=== PATIENT | male | born 1955 | race Caucasian/White ===

== ENCOUNTER → 2016-10-07 | Outpatient (CLI) | payer MEDICARE ==
[~2016-10-07] MED LIST: ASCO500C PO; AZIT250T3 PO; IPRASOL INH; NEBULIZER1 MI1; PRED20 PO; SYMB80AE INH; VENTAER INH
--- NOTE | 2016-12-10 14:00 | RSPPFT ---
DATE OF PROCEDURE: 10/07/16 COMMENTS: VOLUMES DYNAMIC: FVC mildly reduced; FEV1 severely reduced. FLOWS: FEV1% and FEF 25-75 severely reduced. IMPRESSION: Severe obstructive ventilatory defect with minimal improvement post-bronchodilator.
== END ==
LOC: HRSP 10:44
PROVIDERS: ATTEND Family Medicine
DX: J43.9 Emphysema, unspecified (principal); F17.200 Nicotine dependence, unspecified, uncomplicated
CPT/HCPCS: 94060

== ENCOUNTER → 2016-10-24 | Outpatient (CLI) | payer MEDICARE ==
[2016-10-24 10:04] LABS: HEMATOCRIT 44.2 % (39.0-51.0); MEAN CELL VOLUME 94.5 FL (80.0-100.0); MEAN CORPUSCULAR HEMOGLOBIN 32.7 PG (27.0-34.0); MEAN CORPUSCULAR HGB CONC 34.6 % (32.0-36.0); PLATELET COUNT 304 TH/MM3 (150-450); RED BLOOD COUNT 4.67 MIL/MM3 (4.50-5.90); RED CELL DISTRIBUTION WIDTH 14.2 % (11.6-17.2); REVIEW FLAG FINAL; WHITE BLOOD COUNT 8.9 TH/MM3 (4.0-11.0)
[2016-10-24 10:21] LABS: BICARBONATE 27.7 MEQ/L (21.0-32.0); POTASSIUM 4.3 MEQ/L (3.5-5.1)
== END ==
LOC: PLAB 07:17
PROVIDERS: ATTEND Family Medicine
DX: J43.9 Emphysema, unspecified (principal); F17.200 Nicotine dependence, unspecified, uncomplicated
CPT/HCPCS: 36415; 80048; 85027

== ENCOUNTER → 2016-11-11 | Outpatient (CLI) | payer MEDICARE ==
[2016-11-11 15:43] LABS: BLOOD, URINE NEG (NEG); GLUCOSE,URINE NEG (NEG); KETONE, URINE NEG (NEG); NITRITE,URINE NEG (NEG); PH, URINE 5.5 (5.0-8.5); URINE COLOR LIGHT-YELLOW (YELLW/STRAW)
[2016-11-11 15:51] LABS: CREATININE RANDOM URINE 27 MG/DL (27-300)
[2016-11-11 16:00] LABS: MICRO ALBUMIN RANDOM URINE RAW LESS THAN 5.0 MG/L (0.0-30.0); MICROALBUMIN/CREAT RATIO RAND 19 MG/G CRE (0-30)
== END ==
LOC: PLAB 13:29
PROVIDERS: ATTEND Family Medicine
DX: Z00.00 Encounter for general adult medical examination without abnormal findings (principal); R94.4 Abnormal results of kidney function studies; J43.9 Emphysema, unspecified; R31.29 Other microscopic hematuria; R80.9 Proteinuria, unspecified; Z12.11 Encounter for screening for malignant neoplasm of colon; Z68.23 Body mass index [BMI] 23.0-23.9, adult
CPT/HCPCS: 81001; 82043

== ENCOUNTER → 2016-11-28 | Outpatient (CLI) | payer MEDICARE ==
[2016-11-28 13:06] LABS: MEAN CELL VOLUME 94.1 FL (80.0-100.0); MEAN CORPUSCULAR HEMOGLOBIN 31.4 PG (27.0-34.0); MEAN CORPUSCULAR HGB CONC 33.4 % (32.0-36.0); PLATELET COUNT 231 TH/MM3 (150-450); RED BLOOD COUNT 4.58 MIL/MM3 (4.50-5.90); RED CELL DISTRIBUTION WIDTH 14.5 % (11.6-17.2); REVIEW FLAG FINAL; WHITE BLOOD COUNT 8.4 TH/MM3 (4.0-11.0)
[2016-11-28 13:19] LABS: BLOOD, URINE NEG (NEG); GLUCOSE,URINE NEG (NEG); KETONE, URINE NEG (NEG); MUCUS URINE FEW /lpf (OCC); NITRITE,URINE NEG (NEG); URINE COLOR YELLOW (YELLW/STRAW)
[2016-11-28 13:33] LABS: MICRO ALBUMIN RANDOM URINE RAW 5.9 MG/L (0.0-30.0)
[2016-11-28 13:38] LABS: BICARBONATE 27.8 MEQ/L (21.0-32.0); POTASSIUM 4.1 MEQ/L (3.5-5.1)
== END ==
LOC: PLAB 08:40
PROVIDERS: ATTEND Family Medicine
DX: J43.9 Emphysema, unspecified (principal); R94.4 Abnormal results of kidney function studies; Z12.11 Encounter for screening for malignant neoplasm of colon; Z68.23 Body mass index [BMI] 23.0-23.9, adult
CPT/HCPCS: 36415; 80048; 81001; 82043; 85027

== ENCOUNTER 2016-12-23 03:09 | Emergency (ER) | payer MEDICARE, MEDICAID ==
[~2016-12-23] VITALS: Ht 182.9 cm; Wt 72.7 kg
[2016-12-23] MEDS ORDERED: DOPamine INJ PREMIX 500 ML ONE (03:17)
[2016-12-23] MEDS ORDERED: NOREPINEPHRINE 4 MG/4 ML AMP ONE (03:44)
[2016-12-23] MEDS ORDERED: NOREPINEPHRINE 4 MG/D5W 250 ML IV SCH (04:00)
--- NOTE | 2016-12-23 04:41 | PD ---
HPI Chief Complaint: Code Blue Time Seen by Provider: 04:35 Travel History International Travel<30 days: No Contact w/Intl Traveler<30days: No Traveled to known affect area: No History of Present Illness HPI 61-year-old male presents to the emergency department by EMS transport in cardiac arrest. According to slabber [facility] report they were called to his home for complaint of shortness of breath. According to slabber light report the patient wasn't unable to give his own history due to marked shortness of breath and history was obtained by the patient's . According to slabber [facility] report as soon as they began to transport him from the house to the EMS unit the patient went into cardiac arrest and he was quickly placed in the unit intubated with a 7.5 endotracheal tube IV access was obtained via a left external jugular vein and patient was found to be in asystole along with compressions patient was given epinephrine. Blood glucose was 121. Patient reportedly received 2 rounds of epinephrine en route to the hospital as well as sodium bicarbonate. Upon their arrival to the emergency department reportedly patient was starting to show some evidence of effort to breathe spontaneously. Patient did not have a palpable pulse during transport or upon arrival to the emergency department. According to slabber light report patient had awakened with marked shortness of breath complaining of inability degrees and then becoming more symptomatic. Patient has history of COPD and tobacco use. No other history available. PFSH Past Medical History Narrative Medical copd; tobacco; nursing notes reviewed Social History Tobacco Use: Yes Allergies-Medications (Allergen,Severity, Reaction): Coded Allergies: No Known Allergies (Unverified , 12/23/16) Reported Meds & Prescriptions Reported Meds & Active Scripts Active Nebulizer 1 Mis Mis 1 Ea .ROUTE DIRECTED Duoneb (Ipratropium-Albuterol Neb) 0.5-2.5 Mg/3 Ml Neb 1 Nebule INH Q4HR NEB Prednisone 20 Mg Tab 20 Mg PO BID Azithromycin 250 Mg Tab 250 Mg PO DIRECTED Take 2 tabs (500 mg) on day 1 then 1 tab daily x 4 days. Symbicort Inh (Budesonide/Formoterol Fumarate) 80-4.5 Mcg/Act Aero 2 Puff INH Q12HR Reported Ventolin Hfa 18 GM Inh (Albuterol Sulfate) 90 Mcg/Act Aer 2 Puff INH Q6H PRN Vitamin C (Ascorbic Acid) 500 Mg Cap 500 Mg PO Review of Systems ROS Limitations: Clinical Condition, Intubated, Unresponsive Physical Exam Narrative GENERAL: Well-developed thin male intubated unresponsive Ambu assisted ventilations with a few agonal respirations no spontaneous heart sounds to auscultation no palpable femoral or carotid pulse. SKIN: Warm and dry and dusky. HEAD: Normocephalic. EYES: No scleral icterus. No injection or drainage. Pupils dilated. NECK: Supple, trachea midline. No JVD or lymphadenopathy. Left external jugular vein with venous access. CARDIOVASCULAR: No heart sounds to auscultation. No femoral radial or carotid pulses to palpation bilaterally. RESPIRATORY: Breath sounds equal bilaterally with ambu assisted ventilation. GASTROINTESTINAL: Abdomen soft, nondistended. MUSCULOSKELETAL: No edema. Data Data Orders Dopamine Inj Premix (Dopamine Inj Premix (12/23/16 03:17) Norepinephrine Inj (Levophed Inj) (12/23/16 03:44) Norepinephrine-Dextrose Drip (Levophed-D (12/23/16 04:00) Arterial Blood Gas (Abg) (12/23/16 03:14) Labs Laboratory Tests Test 12/23/16 03:14 Blood Gas Puncture Site LFEM Blood Gas Patient Temperature 98.6 Blood Gas HCO3 12 mmol/L Blood Gas Base Excess -18.8 mmol/L Blood Gas Oxygen Saturation 96 % Arterial Blood pH 6.90 Arterial Blood Partial 63 mmHG Pressure CO2 Arterial Blood Partial 256 mmHG Pressure O2 Arterial Blood Oxygen Content 16.0 Vol % Arterial Blood 1.4 % Carboxyhemoglobin Arterial Blood Methemoglobin 1.0 % Blood Gas Hemoglobin 11.4 G/DL Oxygen Delivery Device AMBU Blood Gas Liter Flow 15 L/M Blood Gas Inspired Oxygen 100 % MDM Medical Decision Making Medical Screen Exam Complete: Yes Emergency Medical Condition: Yes Medical Record Reviewed: Yes Interpretation(s) EKG: Bradycardic rate 40 ST elevation V3 through V6 with incomplete right bundle branch block ABG ph: 6.9, pCO2 62, pO2 256; bicarb 11 BE -18 Differential Diagnosis Cardiac arrest: secondary to respiratory arrest secondary to COPD exacerbation, secondary to myocardial infarction with cardiogenic shock, also to consider PE, aneurysm, and dissection and 61-year-old male with heavy tobacco use 2-3 packs per day for greater than 40 years. Narrative Course Upon arrival to the emergency department the patient was identified to have no pulse on the EMS stretcher was monitored in a PEA and ambu with endotracheal intubation assisted ventilations were in progress. Upon transfer from EMS stretcher to ED stretcher breath sounds were auscultated with assist of Ambu provided ventilations bilaterally. Patient appeared to be attempting agonal respirations. There was no palpable carotid or femoral pulses to palpation and no heart sounds to auscultation; compressions were resumed and patient was given additional epinephrine. 1 L normal saline administered wide open. Compressions were continued assisted ventilations were continued with good chest rise. Patient continued to be monitored; no palpable pulses with compressions noted and no palpable pulses without compressions; noted in PEA. Bedside Doppler was used to identify pulse with compressions. Additional epinephrine administered times one dose compressions continued. Additional peripheral IV access obtained. Patient was identified to have agonal respiratory efforts noted at time of pulse check again no palpable pulse monitored in PEA however pulse noted with Doppler and bedside ultrasound noted to show some cardiac activity in subxiphoid view. Attempt at blood pressure performed and patient given additional IV fluids. ABG requested. Patient again without palpable pulse and decrease in cardiac activity with bedside ultrasound and decreased spontaneous respiratory effort. Additional epinephrine administered with compressions patient with developing bradycardic rhythm with intermittent pulse with Doppler and faint palpable pulse, bradycardic, administered atropine 1 mg IV. EKG ordered. Dopamine ordered titrated; ABG identified to have pH 6.9 with pco2 62.6 po2 256 BE -18 bicarb 11 fio2 100% with metabolic and respiratory acidosis. EKG performed shows marked bradycardia anterior-laterally V3 through V6 st elevation. No blood pressure detected, femoral pulse with bedside Doppler. Addition of Levophed ordered. Patient's case discussed with on-call resident services coordinator, Dr Trotter at 3:46 AM -- patient not a candidate for catheter lab. Transcutaneous pacing attempted with full capture again no pulse; pacing discontinued. No pulse to palpation, no pulse with bedside Doppler, and no cardiac activity with bedside Doppler in the subxiphoid view, asystole in two leads. Patient at 3:57 AM. Please refer to code summary for further details. informed of patient's ; call placed to patient's physician. able to report that patient had not felt well since Thursday; had been complaining of indigestion; due to complaint of cough and increasing shortness of breath was seen on Thursday in clinic where he complained of shortness of breath and was started on albuterol treatments and antibiotic. Patient was given albuterol in the clinic with some relief of symptoms. reports history of COPD and tobacco use. No history of hypertension dyslipidemia or diabetes. Patient's last EKG for cardiac evaluation was 2 years ago. Patient did not reportedly complain in clinic to provider regarding chest discomfort or indigestion. Per patient went to bed reportedly feeling pretty good after updraft treatment and then awakened her just prior to her calling 911 complaining of inability to breathe and worsening shortness of breath. states he was not able to provide EMS any history due to his symptomatology. Physician Communication Physician Communication @ 3:46 case discussed with Lock Operator Dr Trotter-- not stemi alert candidate, admit if resuscitated to electric razor assembler @ 4:[address] Pineda covering for Dr Tracy -- to sign certificate in AM; case declined by ME. Diagnosis Primary Impression: Cardiopulmonary arrest Disposition: 20 Condition: Caitlin Medina MD Dec 23, 2016 04:41
[2016-12-23 06:02] LABS: BLOOD GAS BASE EXCESS -18.8 mmol/L (-2-2); BLOOD GAS CARBOXYHEMOGLOBIN 1.4 % (0-4); BLOOD GAS HCO3 12 mmol/L (22-26); BLOOD GAS O2 HGB SATURATION 96 % (90-100); BLOOD GAS PCO2 63 mmHG (38-42); BLOOD GAS PO2 256 mmHG (61-120); BLOOD GAS TOTAL HGB 11.4 G/DL (12.0-16.0); CRITICAL VALUE YES; DRAW SITE LFEM; FIO2 100 %; LITER FLOW 15 L/M; OXYGEN DEVICE AMBU; STAT YES; TEMP CORR TO 98.6
--- NOTE | 2016-12-23 13:28 | EKG ---
Date Performed: 12/23/2016 Time Performed: 03:40:10 PTAGE: 61 years EKG: Possible ectopic atrial bradycardia. Indeterminate axis Nonspecific intraventricular conduc tion delay Anterolateral ST elevation, consider acute injury pattern Generalized low QRS voltages Abn ormal ECG PREVIOUS TRACING : 12/23/2016 03.36, image not available. DOCTOR: Fady Ayala Interpretating Date/Time 12/23/2016 13:27:06
[2016-12-24 07:42] LABS: NUMBER OF ARTERIAL PUNCTURES 1
== END 2016-12-23 04:00 | disposition expired ==
LOC: PHED 03:09
DX: I46.9 Cardiac arrest, cause unspecified (principal); J44.9 Chronic obstructive pulmonary disease, unspecified; Z72.0 Tobacco use; R94.31 Abnormal electrocardiogram [ECG] [EKG]
CPT/HCPCS: 36600; 82805; 92950; 93005; 99285; J1265